=== PATIENT | female | born 1935 | race African-American/Black ===

== ENCOUNTER 2021-12-28 04:56 | Inpatient (IN) | payer OTHER ==
[2021-12-28] VITALS (57 sets, daily range): BP systolic 74–143; BP diastolic 45–104
[~2021-12-28] VITALS: Ht 175.3 cm; Wt 64.9 kg
[2021-12-28] MEDS ORDERED: ONDANSETRON HCL 4MG/2ML INJ IV STA ×2 (05:18→07:50)
[2021-12-28] MEDS ORDERED: MORPHINE SULFATE 4 MG/ML CPJ (NOT FOR IM USE) IV STA ×2 (05:18→07:50)
[2021-12-28] MEDS ORDERED: SODIUM CHLORIDE 0.9% 1,000 ML IV ONE ×2 (05:30→07:45)
[2021-12-28 05:56] LABS: HEMATOCRIT. 40.8 % (36.0-48.0); HEMOGLOBIN. 13.2 g/dL (12.0-16.0); MEAN CORPUSCULAR HEMOGLOBIN 29.5 pg (28.0-32.0); MEAN CORPUSCULAR VOLUME 90.9 fL (81.0-99.0); MEAN PLATELET VOLUME 11.6 fl (7.4-10.4); PLATELET 154 x1000/uL (130-400); RED BLOOD CELL COUNT 4.48 mill/uL (4.2-5.4); RED CELL DISTRIBUTION WIDTH 17.5 % (11.6-14.6)
[2021-12-28 06:01] LABS: CHLORIDE 103 mEq/L (98-107)
[2021-12-28 06:42] LABS: PLATELET ESTIMATE NORMAL
[2021-12-28] MEDS ORDERED: PIPERACILLIN/TAZ 3.375G PREMIX 50 ML IV ONE (07:45)
[2021-12-28] MEDS ORDERED: SUCCINYLCHOLINE CHLORIDE 200MG/10ML IV ONE (09:20)
[2021-12-28] MEDS ORDERED: ETOMIDATE 2MG/ML 10ML VIAL IV ONE (09:20)
[2021-12-28] MEDS ORDERED: ROCURONIUM BROMIDE 10MG/ML VIAL 5ML IV ONE ×2 (09:21→10:41)
[2021-12-28] MEDS ORDERED: ONDANSETRON HCL 4MG/2ML INJ IV PRN (09:30)
[2021-12-28] MEDS ORDERED: BUPIVACAINE HCL 0.5% (5MG/ML) 50ML ONE (09:52)
[2021-12-28] MEDS ORDERED: DEXT 5%/0.45% NACL KCL 20MEQ/L 1,000 ML IV SCH (10:00)
[2021-12-28] MEDS ORDERED: PHENYLEPHRINE HCL 10 MG/ML 1ML (IV VIAL) IV ONE ×2 (10:04→10:34)
[2021-12-28] MEDS ORDERED: BUPIVACAINE HCL 0.5% 125 ML in ON-Q PM012 DRUG DELIV DEVICE 1 EA IR STA (10:05)
[2021-12-28] MEDS ORDERED: NEOSTIGMINE METHYLSULFATE 1MG/ML 10 ML VIAL ONE (10:32)
[2021-12-28] MEDS ORDERED: GLYCOPYRROLATE 0.2 MG/ML 2ML VIAL ONE (10:32)
[2021-12-28] MEDS ORDERED: MIDAZOLAM HCL 2 MG/2 ML VIAL ONE (10:44)
[2021-12-28] MEDS ORDERED: NALOXONE HCL 0.4MG/ML VIAL IV PRN (11:15)
[2021-12-28] MEDS: FAMOTIDINE 20MG/2ML VIAL IV SCH (11:55)
[2021-12-28] MEDS: MORPHINE SULFATE 2 MG/ML CPJ (NOT FOR IM USE) IV PRN (11:56)
[2021-12-28] MEDS: MORPHINE SULFATE 4 MG/ML CPJ (NOT FOR IM USE) IV PRN (13:14)
[2021-12-28] MEDS: PIPERACILLIN/TAZOBACTAM 3.375 G in DEXTROSE 5% WATER 50 ML IV SCH ×2 (13:42→22:41)
[2021-12-28] MEDS: DEXT 5%/0.45% NACL KCL 20MEQ/L 1,000 ML IV SCH (14:03)
[2021-12-28 15:46] LABS: BG BASE EXCESS 2.4 mmol/L (-2.0-2.0); BG CARBOXYHEMOGLOBIN 0.3 % (0.5-1.5); BG DEOXYHEMOGLOBIN 3.1 % (0.0-5.0); BG FRACTION INSPIRED OXYGEN 50; BG HCO3 ACT 24.4 mmol/L (22.0-26.0); BG METHEMOGLOBIN 0.4 % (0.0-1.5); BG OXYGEN SATURATION 96.9 % (92.0-98.5); BG OXYHEMOGLOBIN 96.2 % (94.0-97.0); BG PCO2 29.7 mmHg (35.0-45.0); BG PH 7.532 (7.350-7.450); BG PO2 79.7 mmHg (75.0-100.0); BG SAMPLE SITE RIGHT RADIAL; BG VENT MODE VENT - AC
[2021-12-28] MEDS: PHENYLEPHRINE 50 MG in DEXTROSE 5% WATER 250 ML IV PRN (17:36)
[2021-12-28] MEDS ORDERED: BLOO-1104 (17:56)
[2021-12-28] MEDS ORDERED: CARV3.1242 PO (17:56)
[2021-12-28] MEDS ORDERED: BLOO-1065 XX (17:56)
[2021-12-28] MEDS ORDERED: EZET-59 PO (17:56)
[2021-12-28] MEDS ORDERED: LANC-1022 (17:56)
[2021-12-28] MEDS ORDERED: ERGO1250 PO (17:56)
[2021-12-28] MEDS ORDERED: ZINC1CAP2 (17:57)
[2021-12-28] MEDS ORDERED: [UNRECOGNIZED DRUG - CODE] PO (17:57)
[2021-12-28 22:37] LABS: CLARITY URINE TURBID (CLEAR); COLOR URINE DARK YELLOW (YELLOW); KETONES URINE TRACE (NEGATIVE); LEUKOCYTE ESTERASE URINE 2+ (NEGATIVE); NITRITE URINE NEGATIVE (NEGATIVE); OCCULT BLOOD URINE 3+ (NEGATIVE); PH URINE 5.5 (4.5-8.0); PROTEIN URINE 1+ (NEGATIVE); SPECIFIC GRAVITY URINE 1.027 (1.005-1.030)
[2021-12-29] VITALS (69 sets, daily range): BP systolic 81–118; BP diastolic 46–75
[2021-12-29] MEDS: DEXT 5%/0.45% NACL KCL 20MEQ/L 1,000 ML IV SCH (01:03)
[2021-12-29] MEDS: PHENYLEPHRINE 50 MG in DEXTROSE 5% WATER 250 ML IV PRN ×3 (04:52→21:48)
[2021-12-29] MEDS: PIPERACILLIN/TAZOBACTAM 3.375 G in DEXTROSE 5% WATER 50 ML IV SCH ×3 (05:44→21:32)
[2021-12-29 05:51] LABS: HEMATOCRIT. 30.8 % (36.0-48.0); HEMOGLOBIN. 9.9 g/dL (12.0-16.0); MEAN CORPUSCULAR HEMOGLOBIN 29.6 pg (28.0-32.0); MEAN CORPUSCULAR VOLUME 91.8 fL (81.0-99.0); PLATELET 128 x1000/uL (130-400); RED BLOOD CELL COUNT 3.36 mill/uL (4.2-5.4); RED CELL DISTRIBUTION WIDTH 18.5 % (11.6-14.6)
[2021-12-29 05:52] LABS: CHLORIDE 109 mEq/L (98-107)
[2021-12-29 08:41] LABS: PLATELET ESTIMATE SLIGHTLY DECREASED
[2021-12-29] MEDS: DEXT 5%/0.45% NACL 1000ML 1,000 ML IV SCH ×2 (08:51→18:40)
[2021-12-29] MEDS ORDERED: LIDOCAINE HCL/PF 1% 10 MG/ML 5ML VIAL ONE (09:02)
[2021-12-29 09:40] LABS: BG BASE EXCESS -0.1 mmol/L (-2.0-2.0); BG CARBOXYHEMOGLOBIN 0.3 % (0.5-1.5); BG FRACTION INSPIRED OXYGEN 50; BG HCO3 ACT 22.6 mmol/L (22.0-26.0); BG METHEMOGLOBIN 0.3 % (0.0-1.5); BG OXYHEMOGLOBIN 98.4 % (94.0-97.0); BG PCO2 29.5 mmHg (35.0-45.0); BG PH 7.503 (7.350-7.450); BG PO2 125.2 mmHg (75.0-100.0); BG SAMPLE SITE RIGHT BRACHIAL; BG TOTAL HEMOGLOBIN 8.6 g/dL (12.0-18.0); BG VENT MODE VENT - AC
[2021-12-29] MEDS: FAMOTIDINE 20MG/2ML VIAL IV SCH (09:53)
[2021-12-29] MEDS ORDERED: IPRATROPIUM/ALBUTEROL 0.5-3(2.5)MG/3ML NEB HHN PRN (10:00)
[2021-12-29] MEDS: IPRATROPIUM/ALBUTEROL 0.5-3(2.5)MG/3ML NEB HHN SCH ×2 (14:15→20:08)
[2021-12-29] MEDS: MORPHINE SULFATE 2 MG/ML CPJ (NOT FOR IM USE) IV PRN (21:57)
[2021-12-30] VITALS (93 sets, daily range): BP systolic 91–132; BP diastolic 48–83
[2021-12-30] MEDS: IPRATROPIUM/ALBUTEROL 0.5-3(2.5)MG/3ML NEB HHN SCH ×4 (00:32→20:10)
[2021-12-30] MEDS: DEXT 5%/0.45% NACL 1000ML 1,000 ML IV SCH ×2 (05:34→14:45)
[2021-12-30 05:48] LABS: CHLORIDE 105 mEq/L (98-107)
[2021-12-30 05:49] LABS: HEMATOCRIT. 21.6 % (36.0-48.0); HEMOGLOBIN. 7.1 g/dL (12.0-16.0); MEAN CORPUSCULAR HEMOGLOBIN 29.9 pg (28.0-32.0); MEAN CORPUSCULAR VOLUME 91.2 fL (81.0-99.0); MEAN PLATELET VOLUME 11.3 fl (7.4-10.4); PLATELET 108 x1000/uL (130-400); RED BLOOD CELL COUNT 2.36 mill/uL (4.2-5.4); RED CELL DISTRIBUTION WIDTH 18.2 % (11.6-14.6)
[2021-12-30] MEDS: PIPERACILLIN/TAZOBACTAM 3.375 G in DEXTROSE 5% WATER 50 ML IV SCH ×3 (06:50→22:55)
[2021-12-30] MEDS: PHENYLEPHRINE 50 MG in DEXTROSE 5% WATER 250 ML IV PRN (09:27)
[2021-12-30] MEDS: FAMOTIDINE 20MG/2ML VIAL IV SCH (09:27)
[2021-12-30 09:46] LABS: PLATELET ESTIMATE SLIGHTLY DECREASED
[2021-12-30 22:02] LABS: HEMATOCRIT 37.9 % (36.0-48.0); HEMOGLOBIN 12.5 g/dL (12.0-16.0)
[2021-12-30] MEDS: MORPHINE SULFATE 2 MG/ML CPJ (NOT FOR IM USE) IV PRN (22:55)
[2021-12-31] VITALS (63 sets, daily range): BP systolic 105–144; BP diastolic 59–86
[2021-12-31] MEDS: MORPHINE SULFATE 4 MG/ML CPJ (NOT FOR IM USE) IV PRN (01:57)
[2021-12-31] MEDS: DEXT 5%/0.45% NACL 1000ML 1,000 ML IV SCH ×2 (02:29→10:02)
[2021-12-31] MEDS: PIPERACILLIN/TAZOBACTAM 3.375 G in DEXTROSE 5% WATER 50 ML IV SCH (06:33)
[2021-12-31 07:36] LABS: HEMATOCRIT. 36.6 % (36.0-48.0); HEMOGLOBIN. 12.1 g/dL (12.0-16.0); MEAN CORPUSCULAR HEMOGLOBIN 29.5 pg (28.0-32.0); MEAN CORPUSCULAR VOLUME 89.4 fL (81.0-99.0); MEAN PLATELET VOLUME 10.9 fl (7.4-10.4); PLATELET 114 x1000/uL (130-400)
[2021-12-31 08:06] LABS: CHLORIDE 103 mEq/L (98-107)
[2021-12-31] MEDS: IPRATROPIUM/ALBUTEROL 0.5-3(2.5)MG/3ML NEB HHN SCH ×3 (08:34→20:34)
[2021-12-31] MEDS: FAMOTIDINE 20MG/2ML VIAL IV SCH (10:02)
[2021-12-31 10:05] LABS: BG CARBOXYHEMOGLOBIN 0.3 % (0.5-1.5); BG DEOXYHEMOGLOBIN 1.3 % (0.0-5.0); BG FRACTION INSPIRED OXYGEN 40; BG METHEMOGLOBIN 0.2 % (0.0-1.5); BG OXYGEN SATURATION 98.7 % (92.0-98.5); BG OXYHEMOGLOBIN 98.2 % (94.0-97.0); BG PCO2 32.1 mmHg (35.0-45.0); BG PH 7.389 (7.350-7.450); BG PO2 139.7 mmHg (75.0-100.0); BG SAMPLE SITE RIGHT BRACHIAL; BG VENT MODE VENT - CPAP
[2021-12-31] MEDS: DEXT 5%/0.9% NACL 1,000 ML IV SCH ×2 (10:15→21:36)
[2021-12-31] MEDS: MICAFUNGIN 100 MG in SODIUM CHLORIDE 0.9% 100 ML IV SCH (11:53)
[2021-12-31] MEDS: METRONIDAZOLE 500 MG PREMIX 100 ML IV SCH ×2 (14:30→21:36)
[2021-12-31 14:32] LABS: PLATELET ESTIMATE SLIGHTLY DECREASED
[2021-12-31] MEDS: CEFEPIME 2,000 MG in DEXT 5% WATER 100 ML IV SCH (16:06)
[2022-01-01] VITALS (24 sets, daily range): BP systolic 108–149; BP diastolic 63–96
[2022-01-01] MEDS: IPRATROPIUM/ALBUTEROL 0.5-3(2.5)MG/3ML NEB HHN SCH ×4 (01:07→20:33)
[2022-01-01 06:06] LABS: HEMATOCRIT. 40.9 % (36.0-48.0); HEMOGLOBIN. 13.4 g/dL (12.0-16.0); MEAN CORPUSCULAR HEMOGLOBIN 29.9 pg (28.0-32.0); MEAN CORPUSCULAR VOLUME 91.2 fL (81.0-99.0); MEAN PLATELET VOLUME 11.2 fl (7.4-10.4); RED BLOOD CELL COUNT 4.49 mill/uL (4.2-5.4)
[2022-01-01] MEDS: CEFEPIME 2,000 MG in DEXT 5% WATER 100 ML IV SCH (06:11)
[2022-01-01] MEDS: METRONIDAZOLE 500 MG PREMIX 100 ML IV SCH ×3 (06:11→21:10)
[2022-01-01 06:15] LABS: CHLORIDE 107 mEq/L (98-107)
[2022-01-01] MEDS: DEXT 5%/0.9% NACL 1,000 ML IV SCH ×2 (06:17→15:27)
[2022-01-01 07:53] LABS: PLATELET ESTIMATE NORMAL
[2022-01-01 07:55] LABS: PLATELET 139 x1000/uL (130-400)
[2022-01-01] MEDS: FAMOTIDINE 20MG/2ML VIAL IV SCH (09:02)
[2022-01-01] MEDS: MICAFUNGIN 100 MG in SODIUM CHLORIDE 0.9% 100 ML IV SCH (10:22)
[2022-01-01] MEDS: MORPHINE SULFATE 2 MG/ML CPJ (NOT FOR IM USE) IV PRN ×2 (10:23→15:26)
[2022-01-01] MEDS ORDERED: PHENOL/SODIUM PHENOLATE 1.4% SRPAY 177ML MM PRN (13:00)
[2022-01-02] VITALS (12 sets, daily range): BP systolic 118–131; BP diastolic 65–78
[2022-01-02] MEDS: IPRATROPIUM/ALBUTEROL 0.5-3(2.5)MG/3ML NEB HHN SCH ×2 (01:07→20:59)
[2022-01-02] MEDS: DEXT 5%/0.9% NACL 1,000 ML IV SCH ×3 (01:47→21:24)
[2022-01-02] MEDS: METRONIDAZOLE 500 MG PREMIX 100 ML IV SCH ×3 (05:07→21:23)
[2022-01-02] MEDS: CEFEPIME 2,000 MG in DEXT 5% WATER 100 ML IV SCH ×2 (05:08→18:25)
[2022-01-02] MEDS: FAMOTIDINE 20MG/2ML VIAL IV SCH (10:34)
[2022-01-02] MEDS: MICAFUNGIN 100 MG in SODIUM CHLORIDE 0.9% 100 ML IV SCH (10:41)
[2022-01-02 11:20] LABS: CHLORIDE 112 mEq/L (98-107)
[2022-01-02 11:21] LABS: HEMATOCRIT. 44.2 % (36.0-48.0); HEMOGLOBIN. 14.1 g/dL (12.0-16.0); MEAN CORPUSCULAR HEMOGLOBIN 29.8 pg (28.0-32.0); RED BLOOD CELL COUNT 4.75 mill/uL (4.2-5.4); RED CELL DISTRIBUTION WIDTH 17.3 % (11.6-14.6)
[2022-01-02] MEDS ORDERED: FUROSEMIDE 20MG/2ML VIAL IVP NR (12:00)
[2022-01-02] MEDS: ALBUMIN HUMAN 25GM/100ML (25%) IV NR ×2 (12:44→14:43)
[2022-01-02 13:36] LABS: PLATELET ESTIMATE DECREASED
[2022-01-02 13:39] LABS: PLATELET 111 x1000/uL (130-400)
[2022-01-02 16:14] LABS: BG BASE EXCESS -5.7 mmol/L (-2.0-2.0); BG CARBOXYHEMOGLOBIN 0.3 % (0.5-1.5); BG DEOXYHEMOGLOBIN 3.2 % (0.0-5.0); BG FRACTION INSPIRED OXYGEN 36; BG HCO3 ACT 18.6 mmol/L (22.0-26.0); BG METHEMOGLOBIN 0.1 % (0.0-1.5); BG OXYGEN SATURATION 96.8 % (92.0-98.5); BG OXYHEMOGLOBIN 96.4 % (94.0-97.0); BG PCO2 32.5 mmHg (35.0-45.0); BG PH 7.375 (7.350-7.450); BG PO2 88.7 mmHg (75.0-100.0); BG SAMPLE SITE RIGHT RADIAL; BG TOTAL HEMOGLOBIN 12.6 g/dL (12.0-18.0); BG VENT MODE NASAL CANNULA
[2022-01-03] VITALS (12 sets, daily range): BP systolic 116–135; BP diastolic 68–88
[2022-01-03] MEDS: IPRATROPIUM/ALBUTEROL 0.5-3(2.5)MG/3ML NEB HHN SCH ×4 (01:12→21:15)
[2022-01-03] MEDS: METRONIDAZOLE 500 MG PREMIX 100 ML IV SCH ×3 (05:09→22:01)
[2022-01-03] MEDS: CEFEPIME 2,000 MG in DEXT 5% WATER 100 ML IV SCH ×2 (05:09→18:34)
[2022-01-03 06:51] LABS: HEMATOCRIT. 37.6 % (36.0-48.0); HEMOGLOBIN. 12.3 g/dL (12.0-16.0); MEAN CORPUSCULAR HEMOGLOBIN 29.5 pg (28.0-32.0); MEAN CORPUSCULAR VOLUME 90.1 fL (81.0-99.0); MEAN PLATELET VOLUME 11.3 fl (7.4-10.4); PLATELET 146 x1000/uL (130-400); RED BLOOD CELL COUNT 4.18 mill/uL (4.2-5.4); RED CELL DISTRIBUTION WIDTH 16.7 % (11.6-14.6)
[2022-01-03] MEDS ORDERED: POTASSIUM CHLORIDE INJ 40 MEQ in DEXT 5% WATER 250 ML IV ONE (08:45)
[2022-01-03] MEDS: FAMOTIDINE 20MG/2ML VIAL IV SCH (10:46)
[2022-01-03] MEDS: MICAFUNGIN 100 MG in SODIUM CHLORIDE 0.9% 100 ML IV SCH (10:47)
[2022-01-03] MEDS: DEXT 5%/0.9% NACL 1,000 ML IV SCH ×2 (10:48→18:36)
[2022-01-03] MEDS: KCL 20MEQ/100ML X 2 FOR TOTAL KCL 40MEQ/200ML IV SCH ×2 (11:02→13:29)
[2022-01-03] MEDS ORDERED: SODIUM CHLORIDE 0.9% 1,000 ML IV ONE (14:30)
[2022-01-03] MEDS ORDERED: MAGNESIUM 2 G PREMIX 50 ML IV SCH (16:00)
[2022-01-03] MEDS: FLUCONAZOLE 400MG/200ML BAG 200 ML IV SCH (18:34)
[2022-01-03] MEDS ORDERED: HYDROCODONE/ACETAMINOPHEN 10/325MG TABLET PO PRN (21:51)
[2022-01-04] VITALS (12 sets, daily range): BP systolic 95–136; BP diastolic 41–86
[2022-01-04] MEDS: IPRATROPIUM/ALBUTEROL 0.5-3(2.5)MG/3ML NEB HHN SCH ×2 (03:00→08:25)
[2022-01-04] MEDS: DEXT 5%/0.9% NACL 1,000 ML IV SCH ×2 (05:13→20:42)
[2022-01-04] MEDS: CEFEPIME 2,000 MG in DEXT 5% WATER 100 ML IV SCH ×2 (05:14→17:05)
[2022-01-04] MEDS: METRONIDAZOLE 500 MG PREMIX 100 ML IV SCH ×3 (06:17→20:47)
[2022-01-04 07:53] LABS: PLATELET ESTIMATE NORMAL
[2022-01-04] MEDS: FAMOTIDINE 20MG/2ML VIAL IV SCH (09:24)
[2022-01-04] MEDS: METOPROLOL TARTRATE 25MG TABLET PO SCH ×2 (09:34→20:47)
[2022-01-04] MEDS: FLUCONAZOLE 400MG/200ML BAG 200 ML IV SCH (17:30)
[2022-01-05] VITALS (9 sets, daily range): BP systolic 52–119; BP diastolic 40–80
[2022-01-05] MEDS: DEXT 5%/0.9% NACL 1,000 ML IV SCH ×2 (00:15→06:46)
[2022-01-05] MEDS: METRONIDAZOLE 500 MG PREMIX 100 ML IV SCH (05:45)
[2022-01-05 05:50] LABS: HEMATOCRIT. 41.4 % (36.0-48.0); HEMOGLOBIN. 13.2 g/dL (12.0-16.0); MEAN CORPUSCULAR HEMOGLOBIN 29.6 pg (28.0-32.0); MEAN PLATELET VOLUME 11.6 fl (7.4-10.4); PLATELET 190 x1000/uL (130-400); RED BLOOD CELL COUNT 4.45 mill/uL (4.2-5.4); RED CELL DISTRIBUTION WIDTH 18.1 % (11.6-14.6)
[2022-01-05] MEDS: CEFEPIME 2,000 MG in DEXT 5% WATER 100 ML IV SCH (06:46)
[2022-01-05] MEDS: METOPROLOL TARTRATE 25MG TABLET PO SCH (08:29)
[2022-01-05] MEDS: FAMOTIDINE 20MG/2ML VIAL IV SCH (08:29)
[2022-01-05] MEDS ORDERED: MAGNESIUM 2 G PREMIX 50 ML IV ONE (11:00)
[2022-01-05] MEDS ORDERED: SODIUM CHLORIDE 0.9% 500 ML IV ONE (12:15)
[2022-01-05] MEDS ORDERED: SODIUM BICARBONATE 100 MEQ in DEXTROSE 5% WATER 1,000 ML IV SCH (13:00)
[2022-01-05] MEDS ORDERED: MORPHINE SULFATE 2 MG/ML CPJ (NOT FOR IM USE) IV PRN (13:30)
[2022-01-05] MEDS ORDERED: NOREPINEPHRINE 32 MG in DEXT 5% WATER 218 ML IV PRN (13:30)
[2022-01-05] MEDS ORDERED: DOPAMINE 400MG/250ML PREMIX 250 ML IV PRN (13:30)
[2022-01-05] MEDS ORDERED: LORAZEPAM 2MG/ML CPJ IV PRN (13:30)
[2022-01-05] MEDS ORDERED: DOPAMINE HCL 400 MG in DEXT 5% WATER 240 ML IV PRN (14:30)
[2022-01-05 20:31] LABS: PLATELET ESTIMATE NORMAL
== END 2022-01-05 17:30 | DRG 853 ==
LOC: ER 05:16 → MICUNO 10:55 → 5EST 01-01 05:49
PROVIDERS: ADMIT Internal Medicine; ATTEND Internal Medicine
PROC: 0DUU07Z Supplement Omentum with Autologous Tissue Substitute, Open Approach (ICD-10-PCS; principal; 2021-12-28)
PROC: 5A1945Z Respiratory Ventilation, 24-96 Consecutive Hours (ICD-10-PCS; 2021-12-28)
PROC: 0BH17EZ Insertion of Endotracheal Airway into Trachea, Via Natural or Artificial Opening (ICD-10-PCS; 2021-12-28)
PROC: 02HV33Z Insertion of Infusion Device into Superior Vena Cava, Percutaneous Approach (ICD-10-PCS; 2021-12-29)
PROC: B548ZZA Ultrasonography of Superior Vena Cava, Guidance (ICD-10-PCS; 2021-12-29)
PROC: 30233N1 Transfusion of Nonautologous Red Blood Cells into Peripheral Vein, Percutaneous Approach (ICD-10-PCS; 2021-12-30)
DX: A41.9 Sepsis, unspecified organism (principal); E43 Unspecified severe protein-calorie malnutrition; R65.21 Severe sepsis with septic shock; J96.20 Acute and chronic respiratory failure, unspecified whether with hypoxia or hypercapnia; G93.41 Metabolic encephalopathy; K65.8 Other peritonitis; K26.6 Chronic or unspecified duodenal ulcer with both hemorrhage and perforation; N39.0 Urinary tract infection, site not specified; B37.7 Candidal sepsis; D64.9 Anemia, unspecified; E86.1 Hypovolemia; I25.10 Atherosclerotic heart disease of native coronary artery without angina pectoris; I10 Essential (primary) hypertension; Z20.822 Contact with and (suspected) exposure to COVID-19; D69.6 Thrombocytopenia, unspecified; I25.2 Old myocardial infarction; Z86.16 Personal history of COVID-19; Z86.711 Personal history of pulmonary embolism; Z90.49 Acquired absence of other specified parts of digestive tract; Z95.5 Presence of coronary angioplasty implant and graft; Z99.81 Dependence on supplemental oxygen
CPT/HCPCS: 36415; 36600; 71045; 74176; 76937; 80048; 80053; 81003; 82040; 82375; 82805; 83735; 84134; 84145; 85014; 85018; 85025; 86850; 86900; 86920; 87070; 87426; 93005; 93306; 93970; 94002; 94003; 94640; 97110; 97162; 99291; A6261; C1725; J0330; J0692; J1450; J1940; J2248; J2250; J2270; J2370; J2405; J2543; J2710; J3475; J3480; J3490; J7030; J7040; J7042; J7050; J7060; J7070; P9016; P9047; A4315